=== PATIENT | male | born 1975 | race Caucasian/White ===

== ENCOUNTER 2023-03-06 22:17 | Emergency (ER) | payer BC, OTHER ==
[~2023-03-06] VITALS: Ht 182.9 cm; Wt 137.7 kg
[2023-03-07] MEDS ORDERED: AMOX875T2 PO (05:49)
[2023-03-07] MEDS ORDERED: AUGMENTIN 875 MG TAB PO ONE (05:50)
[2023-03-07 06:05] VITALS: BP 142/85; TEMP 98.2; O2SAT 98
== END 2023-03-07 06:07 | disposition home or self-care (01) ==
LOC: M ED 22:17
DX: S02.2XXA Fracture of nasal bones, initial encounter for closed fracture (principal); W51.XXXA Accidental striking against or bumped into by another person, initial encounter; Y93.66 Activity, soccer; I10 Essential (primary) hypertension; K21.9 Gastro-esophageal reflux disease without esophagitis

== ENCOUNTER → 2023-12-22 | Outpatient (CLI) | payer BC ==
[~2023-12-22] MED LIST: AMOX875T2 PO; E-Z-GAS II EFFERVESCENT PACKET (SODIUM BICARB./CITRIC ACID/SIMETHICONE) As Ordered ONE; E-Z-HD 98% w/w 340GM SUSP BTL As Ordered ONE; E-Z-PAQUE 96% w/w SUSP 176GM BTL As Ordered ONE
== END ==
LOC: M RAD 10:31
PROVIDERS: ATTEND Nurse Practitioner Family
DX: R13.10 Dysphagia, unspecified (principal)

== ENCOUNTER → 2025-02-20 | Outpatient (CLI) | payer BC ==
[~2025-02-20] MED LIST changes: -E-Z-GAS II EFFERVESCENT PACKET (SODIUM BICARB./CITRIC ACID/SIMETHICONE) As Ordered ONE; -E-Z-HD 98% w/w 340GM SUSP BTL As Ordered ONE; -E-Z-PAQUE 96% w/w SUSP 176GM BTL As Ordered ONE
[2025-02-20 16:33] LABS: BASO # 0.0 10^3/uL (0.0-0.2); BASO % 0.4 % (0.0-1.0); EOS # 0.1 10^3/uL (0.0-0.5); EOS % 1.4 % (0.0-3.0); LYMPH # 1.9 10^3/uL (1.5-5.0); LYMPH % 23.7 % (24.0-44.0); MONO # 0.5 10^3/uL (0.0-0.8); MONO % 5.8 % (2.0-8.0); NEUTROPHILS # 5.4 10^3/uL (1.5-8.5); NEUTROPHILS % 68.4 % (36.0-66.0); PLATELET COUNT, AUTOMATED 233 10^3/uL (150-450)
[2025-02-20 16:51] LABS: ALT/SGPT 28.0 U/L (7.0-40); AST/SGOT 25.0 U/L (<34); CALCIUM LEVEL 9.7 MG/DL (8.5-10.1); CARBON DIOXIDE LEVEL 24.0 MMOL/L (20-31); CHLORIDE LEVEL 107.0 MMOL/L (98-107); CREATININE FOR GFR 1.21 MG/DL (0.70-1.30); GLOMERULAR FILTRATION RATE 72.5 (>56); MAGNESIUM LEVEL 2.0 MG/DL (1.8-2.4); POTASSIUM SERUM 4.0 MMOL/L (3.5-5.1); SODIUM LEVEL 144.0 MMOL/L (136-145)
[2025-02-20 16:52] LABS: IRON (FE) 53.0 UG/DL (65-175); PERCENT SATURATION 16.4 % (19.7-50.0)
[2025-02-20 16:53] LABS: FREE T4 1.26 NG/DL (0.89-1.76)
== END ==
LOC: M LAB 15:33
PROVIDERS: ATTEND Nurse Practitioner Family
DX: R00.2 Palpitations (principal)